=== PATIENT | male | born 2000 | race Caucasian/White ===

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

== ENCOUNTER 2019-01-13 08:52 | Emergency (ER) | payer OTHER, MEDICAID ==
[2019-01-13 09:12] VITALS: BP 143/77
--- NOTE | 2019-01-13 09:20 | ED Physician Documentation ---
PD HPI SKIN - Stated complaint Stated Complaint: R HAND RASH - Chief complaint Chief Complaint: Wound - History obtained from History obtained from: Patient, Family - History of Present Illness Pain level max: 2 Pain level now: 1 Location: Other (Dorsum of the bilateral hands) Quality / character: Itchy Associated symptoms: No: Fever Contributing factors: Unknown. No: Exposed to medication, Exposed to food, Exposed to soap / lotion, Exposed to Poison hayden/oak, Insect bite /sting, Recent illness - Additional information Additional information: 18-year-old male with bilateral hand rash for the past month. States was improving on oral steroids, but the cream that he was prescribed has not been helping. Increased itching. Does not know of any triggers. States it started after being in [place]. No fevers. No drainage. No vesicles. No blisters. Nothing makes it worse. Review of Systems Constitutional: denies: Fever, Chills GI: denies: Vomiting, Diarrhea PD PAST MEDICAL HISTORY - Past Medical History Past Medical History: Yes Respiratory: CPAP use Endocrine/Autoimmune: None Psych: Anxiety Derm: Eczema - Past Surgical History Past Surgical History: Yes HEENT: Tonsil/Adenoidectomy - Present Medications Home Medications: Ambulatory Orders Medication Instructions Recorded Confirmed Cetirizine [ZyrTEC] 15 mg PO DAILY 10/28/13 12/29/16 Cholecalciferol (Vitamin D3) 2,000 unit PO DAILY 10/28/13 12/29/16 [Vitamin D] Emollient Cream [Eucerin] 0 gm TOP BID PRN 10/28/13 12/29/16 Guanfacine HCl [Intuniv] 1 mg PO BID 10/28/13 12/29/16 Montelukast Sodium [Singulair] 5 mg PO DAILY 10/28/13 09/08/15 Mupirocin 2% Oint [Bactroban] 0 gm TOP BID PRN 10/28/13 12/29/16 Sertraline [Zoloft] 75 mg PO DAILY 10/28/13 12/29/16 Sumatriptan Succinate [Imitrex] 50 mg PO DAILY 10/28/13 12/29/16 Triamcinolone 0.1% Cream [Kenalog] 0 gm TOP BID PRN 10/28/13 12/29/16 Acetaminophen [Tylenol] 650 mg PO Q6H PRN 12/29/16 12/29/16 Inulin [Fiber Gummies] 2 gm PO DAILY 12/29/16 12/29/16 Modafinil 200 mg PO DAILY 12/29/16 12/29/16 [place]-3S/Dha/Epa/Fish Oil [Fish 1 each PO DAILY 12/29/16 12/29/16 Oil 1,200 mg Softgel] Pediatric Multivit Comb No.101 1 each PO DAILY 12/29/16 12/29/16 [Gummy] HYDROcod/ACETAM 5/325 [[place] 5/325] 1 each PO Q6H PRN #7 tablet 07/31/18 Mupirocin Calcium [Bactroban] 1 gm TP BID #15 cream..g. 11/13/18 Sulfamethoxazole/Trimethoprim 1 each PO BID #14 tablet 11/13/18 [Sulfamethoxazole-Tmp Ds Tablet] Betamethasone Valerate 1 applic TOP BID #30 cream..g. 12/09/18 Dexamethasone [Decadron] 4 mg PO DAILY #5 tablet 12/09/18 predniSONE [Deltasone] 10 mg PO [id number] #42 tab 01/13/19 - Allergies Allergies/Adverse Reactions: Allergies Allergy/AdvReac Type Severity Reaction Status Date / Time amphetamine aspartate * Allergy Itching Verified 01/13/19 09:12 [From Adderall] amphetamine sulfate * Allergy Itching Verified 01/13/19 09:12 [From Adderall] dextroamphetamine saccharate Allergy Itching Verified 01/13/19 09:12 * [From Adderall] dextroamphetamine sulfate * Allergy Itching Verified 01/13/19 09:12 [From Adderall] neomycin [Neomycin] Allergy Unknown Verified 01/13/19 09:12 - Social History Does the pt smoke?: No Smoking Status: Never smoker Does the pt drink ETOH?: No Does the pt have substance abuse?: No - Immunizations Immunizations are current?: Yes - POLST Patient has POLST: Yes PD ED PE NORMAL - Vitals Vital signs reviewed: Yes - General General: Alert and oriented X 3, No acute distress, Well developed/nourished - Derm Derm: Warm and dry - Extremities Extremities: Other (Mild papular exanthem over the dorsum of the bilateral hands. Neurovascularly intact. Full range of motion. No tenderness to palpation. No vesicles. No blisters. No secondary infection) - Neuro Neuro: Alert and oriented X 3 - Psych Psych: Normal mood, Normal affect Results - Vitals Vitals: Vital Signs - 24 hr 01/13/19 09:10 Temperature 36.6 C Heart Rate 81 Respiratory 14 Rate Blood Pressure 143/77 H O2 Saturation 95 Oxygen O2 Source Room air PD MEDICAL DECISION MAKING - ED course Complexity details: reviewed old records, considered differential, d/w patient, d/w family ED course: 18-year-old male with what appears to be dermatitis of the dorsum of the bi lateral hands. Will trial on oral steroids and follow-up with his doctor. Patient counseled regarding signs and symptoms for which I believe and urgent re-evaluation would be necessary. Patient with good understanding of and agreement to plan and is comfortable going home at this time This document was made in part using voice recognition software. While efforts are made to proofread this document, sound alike and grammatical errors may occur. Departure - Departure Disposition: 01 Home, Self Care Clinical Impression: Hand dermatitis Condition: Good Instructions: ED Dermatitis Non Specific Rash Follow-Up: [facility] [Provider Group] DARSHAN JASSO [Primary Care Provider] - Within 1 week Prescriptions: predniSONE [Deltasone] 10 mg PO [id number] #42 tab Comments: We will stop the cream at this time and trial you on oral steroids instead. Return if you worsen. Follow-up with your doctor for further care. If you are still not improving, you should follow-up with dermatology.
== END 2019-01-13 09:23 | disposition home or self-care (01) ==
LOC: ED 08:52
DX: L30.9 Dermatitis, unspecified (principal)
CPT/HCPCS: 99283

== ENCOUNTER 2021-06-27 08:46 | Outpatient (CLI) | payer MEDICAID ==
[2021-06-27 10:00] VITALS: BP 117/74
--- NOTE | 2021-06-27 10:00 | SLEEP CARE CONSULTATION ---
Information from patient questionnaire entered by Dayna Shannon. I have reviewed and concur with the information entered by Dayna Shannon. This document represents the service I personally performed and the decisions made by me, Rossana Parsons ARNP. History of Present Illness Service Date and Time: 06/27/2021 0846 Reason for Visit: New patient, Previously diagnosed sleep apnea, sleep apnea on CPAP therapy Chief Complaint: reports: Unrefreshed sleep, Snoring, Excessive daytime sleepiness Date of Onset: Lifetime Usual bedtime: 9784-3326 Time it takes to fall asleep: 10 minutes Snores at night: Yes Observed to quit breathing while asleep: Yes Sleeps alone due to snoring: No Number of times waking at night: 1 Reasons for waking at night: reports: Bathroom Toss, Turn, or Twitch while sleeping: Yes Recalls having dreams: Yes Usually gets out of bed at: 3504-1364 Feels refreshed in the morning: Yes (sometimes) Morning headache: Yes (has hx of migraines) Sleepy or fatigued during the day: No Ever fallen asleep while driving: No Takes day naps: Yes (2 times week for about 2 hours) Dreams during day naps: Yes Prior sleep studies: Yes Year and Where: 2013 [facility] Type of Sleep Study: Polysomnography Additional HPI information: SENA CARUSO was previously diagnosed to have mild to moderate, AHI 10.2 in 2017 and 4.8 in 2019, obstructive sleep apnea-hypopnea syndrome [facility]. - Parasomnia Symptoms Ever been unable to move upon waking from sleep: No Walks in sleep: No Talks in sleep: No Ever acted out dreams in sleep: Yes Ever felt weak in the knees when startled or emotional: No Bothered by creepy, crawly, restless sensations in legs: Yes Problems with memory or concentration: Yes CPAP Compliance Data - Data Reviewed with Patient Average duration of nightly device use: 5 hours 27 minutes Compliance rate %: 33 Current pressure setting (cmH2O): 4-14 Average residual AHI: 0.6 Central apnea: 0.3 Obstructive apnea: 0.2 Compliance data discussion: He is using a full face mask. He gets his supplies from [facility]. He last changed his mask about 2-3 months. He does have a back up mask. Subjective Patient concerns: reports: dry mouth, nose, throat. denies: aerophagia, mask discomfort, air blowing in eyes, mask leak noise, condensation in mask/hose, nasal congestion, epistaxis, other Observed to snore while using device: No Current pressure setting perceived as: comfortable On therapy, patient: reports: sleeping better, awakening more refreshed, being more awake and alert during the day, more rested overall. denies: drowsiness while driving Initial [place] Sleepiness Scale score: 10 (in 2020) Past Medical History Past Medical History: reports: Anxiety, Attention deficit, Other (Migraines, chiari malfomation, eczema, acne, sensitive skin, autism, sleep apnea) Social History The patient's occupation is a [employer]. Patient is Single and lives in [place]. Have you smoked in the past 12 months: No Alcohol use: No Caffeine use: No Family History Family history of sleep disordered breathing: Yes Family Hx Sleep Apnea: Father: Snoring, Sleep apnea - Treated Allergies and Home Medications Drug allergies reviewed: Yes (neomycin, adderall) Home medication list reviewed: Yes Allergy and home medication list: Guanfacine Topiramate Setraline Sumatriptan Doxycycline Montelukast Omeprazole Vit D3 Propanolol HCI Cholestyramine Review of Systems Weight loss over past 5 years: 10 Neurological: reports: headaches Psychiatric: reports: Attention Deficit Hyperactivity, anxiety Ear/Nose/Throat: reports: nose bleeds, tonsillectomy, wisdom teeth removed Immunologic: reports: rash, itching Physical Exam Blood Pressure: 117/74 Cuff size: wrist Heart Rate: 66 O2 Saturation: 99 Height: 6 ft 3 in Weight: 241 lb Body Mass Index: 30.1 BMI Classification: Obese Heart: regular rate and rhythm Lungs: clear bilaterally Impression and Plan 1. Obstructive Sleep Apnea-Hypopnea Syndrome, mild to moderate, with poor treatment compliance and excellent apnea control. Patient is accompanied by his sister today. Patient has history of autism, ADHD, Chiari I malformation, and developmental delays. On CPAP therapy, the patient has better sleep quality and is more rested overall. He has been being treated for most of his childhood with CPAP and Modafinil but he no longer takes Modafinil. His last sleep study was obtained in 2019 with an average AHI 4.8 and recommendation to continue CPAP was made. Patient states he will fall asleep without the mask on. He states he will lay down in bed and either think or look at his tablet and then fall asleep pretty quickly. I discussed with him having him put his mask on and turn the pressure on when he lays down. He can still look at his tablet and think until he falls asleep. This will help to increase his compliance numbers and reduce his sleepiness.Patient voiced understanding and agreement with this plan. Patient's apnea severity and rationale for treatment to reduce apnea, improve sleep quality and reduce cardiovascular and cerebrovascular events was reviewed. * Continue auto CPAP pressure at 4-14 cmH2O * Notify me if snoring with mask or feeling that the pressure is too much or too little * Attempt to lose weight * Call this office if any problems using CPAP * Return for follow up in 1-2 months, or sooner if concerns arise Counseling Topics: Spare mask, Weight loss health impact Visit Type: In Office Time Spent with Patient (minutes): 42 Provider Statement: I spent 100% of the Face to Face Visit with the patient with greater than 50% spent counseling the patient and coordination of care.
== END 2021-06-27 08:47 | disposition home or self-care (01) ==
LOC: SC 08:46
PROVIDERS: ATTEND Nurse Practitioner Family
DX: G47.33 Obstructive sleep apnea (adult) (pediatric) (principal); E66.9 Obesity, unspecified; Z68.30 Body mass index [BMI] 30.0-30.9, adult
CPT/HCPCS: 99203; 99212

== ENCOUNTER 2021-08-01 09:00 | Outpatient (CLI) | payer MEDICAID ==
--- NOTE | 2021-08-01 09:50 | SLEEP CARE CONSULTATION ---
Information from patient questionnaire entered by Dewayne Bowser MA. I have reviewed and concur with the information entered by Dewayne Bowser MA. This document represents the service I personally performed and the decisions made by , Rossana Parsons ARNP. History of Present Illness Service Date and Time: 08/01/2021 0900 Previous diagnosis: Mild AHI: 10.2 (2017 (4.8 in 2019)) Reason for follow up: one month Equipment type: [facility] Mask style: Full face Backup mask available: Yes (other mask) Last cushion change: over a month Year and Where: [facility] Type of Sleep Study: Polysomnography HPI additional information: SENA CARUSO was diagnosed to have mild, AHI 10.2, obstructive sleep apnea- hypopnea syndrome and returned today with mother for CPAP therapy one month follow-up. CPAP Compliance Data - Data Reviewed with Patient Average duration of nightly device use: 6 hours 10 minutes Compliance rate %: 70 Current pressure setting (cmH2O): 4-14 Average residual AHI: 0.8 Central apnea: 0.5 Obstructive apnea: 0.1 Subjective Patient concerns: reports: dry mouth, nose, throat (some, "not that much"). denies: aerophagia, mask discomfort, air blowing in eyes, mask leak noise, condensation in mask/hose, nasal congestion, epistaxis, other Observed to snore while using device: No Current pressure setting perceived as: comfortable On therapy, patient: reports: sleeping better, awakening more refreshed, being more awake and alert during the day, more rested overall. denies: drowsiness while driving Initial [place] Sleepiness Scale score: 10 (2020) Current [place] Sleepiness Scale score: 10 (2020) Allergies and Home Medications Home medication list reviewed: Yes (no changes) Review of Systems Review of systems same as previous: Yes (no changes) Physical Exam Vital signs obtained and entered by: Julia AGUILAR Blood Pressure: 112/66 (left) Cuff size: wrist Heart Rate: 64 O2 Saturation: 98 (with mask) Height: 6 ft 3 in Weight: 238 lb (without boots) Body Mass Index: 29.7 BMI Classification: Overweight Impression and Plan 1. Obstructive Sleep Apnea-Hypopnea Syndrome, mild, with good treatment compliance and excellent apnea control. On CPAP therapy, the patient has better sleep quality and is more rested overall. He has brought his compliance up nicely. He is very satisfied with current CPAP therapy and has no complaints except occasional dry mouth. Oral dryness can be reduced by adjusting humidity setting higher or heated hose lower or by adjusting both settings. Patient advised that chronic oral dryness can affect dental health. He voiced understanding. Patient's CPAP was last updated in 2013. The patients CPAP is over 5 years old and of reasonable use. Thus, the CPAP will be updated. The new CPAPs also have a better humidity system which could assist control of patients dryness symptoms. A DWO prescription will be made. Compliance guidelines for new device and follow up discussed. Patient's apnea severity and rationale for treatment to reduce apnea, improve sleep quality and reduce cardiovascular and cerebrovascular events was reviewed. I also reviewed the benefit of consistent device use of CPAP for anxiety and ADD. * Continue auto CPAP pressure at 4-14 cmH2O * Update device * Update supplies as needed * Notify me if snoring with mask or feeling that the pressure is too much or too little * Attempt to lose weight * Call this office if any problems using CPAP * Return for follow up one month after obtaining new device, or sooner if concerns arise Counseling Topics: Spare mask, Weight loss health impact Visit Type: In Office Other Participants: Other (Mother) Time Spent with Patient (minutes): 20 Provider Statement: I spent 100% of the Face to Face Visit with the patient with greater than 50% spent counseling the patient and coordination of care.
[2021-08-01 09:51] VITALS: BP 112/66
== END 2021-08-01 09:01 | disposition home or self-care (01) ==
LOC: SC 09:00
PROVIDERS: ATTEND Nurse Practitioner Family
DX: G47.33 Obstructive sleep apnea (adult) (pediatric) (principal)
CPT/HCPCS: 99212; 99213

== ENCOUNTER 2022-12-13 13:39 | Outpatient (CLI) | payer MEDICAID ==
--- NOTE | 2022-12-13 15:05 | Ultrasound Report ---
PROCEDURE: Retroperitoneal INDICATIONS: HYPEROZALURIA TECHNIQUE: Real-time scanning was performed of the retroperitoneal organs, with image documentation. COMPARISON: None. FINDINGS: Kidneys: Kidneys are normal in size. Right kidney measures 14 cm long; left kidney measures 12 cm l mary anne. Right renal cortical thickness is 2 cm; left renal cortical thickness is 1.9 cm. No solid mass es or hydronephrosis. Left stone measuring 5 mm. Right stone measuring 9 mm. Left renal cyst measurin g 2.5 cm. Right renal cyst measuring 2.2 cm. Pancreas: Visualized portions of the pancreas are sonographically normal. Aorta: Visualized aorta is normal in caliber at 3 cm or less. Iliac arteries: Proximal common iliac arteries are normal in caliber at 2.5 cm or less. IVC: Intrahepatic inferior vena cava is patent. Bladder: Pre-void bladder volume is 140 mL. Post-void residual is 14 mL. Pre-void images demonstra te no intraluminal masses or stones. On pre-void images, bilateral ureteral jets are noted with colo r Doppler interrogation. (Of note, ureteral jets may not be detectable in up to 25% of cases due to insufficient differences in specific gravity between ureteral and bladder urine). Miscellaneous: Prostate measures 3.8 x 2.2 x 4.5 cm.. IMPRESSION: Bilateral nephrolithiasis without evidence of obstruction. Reviewed by: Oren Arthur MD on 12/13/2022 2:04 PM DAVID Approved by: Oren Arthur MD on 12/13/2022 2:04 PM AKMAXIMILIAN Station ID: [id number]
== END 2022-12-13 13:40 | disposition home or self-care (01) ==
LOC: DI 13:39
PROVIDERS: ATTEND Urology
DX: N20.0 Calculus of kidney (principal)

== ENCOUNTER 2023-05-29 07:24 | Outpatient (CLI) | payer MEDICAID ==
--- NOTE | 2023-05-29 18:21 | Ultrasound Report ---
PROCEDURE: Retroperitoneal INDICATIONS: HYPEROXALURIA TECHNIQUE: Real-time scanning was performed of the retroperitoneal organs, with image documentation. COMPARISON: 12/13/2021 FINDINGS: Kidneys: Kidneys are normal in size. Right kidney measures 13.6 cm long; left kidney measures 12 cm long. Right renal cortical thickness is 1.6 cm; left renal cortical thickness is 1 cm. No solid ma sses or hydronephrosis. Within the right lateral inferior kidney, there is a 1 cm stone. Within the superior left kidney, there is an 8 mm stone. Bilateral simple appearing renal cysts can again be seen. Bladder: Pre-void bladder volume is 296 mL. Post-void residual is 3 mL. Pre-void images demonstrat e no intraluminal masses or stones. On pre-void images, both ureteral jets are noted with color Dopp ler interrogation. (Of note, ureteral jets may not be detectable in up to 25% of cases due to insuff icient differences in specific gravity between ureteral and bladder urine). Miscellaneous: No free abdominal fluid. The prostate measures 3.5 x 2.7 x 5.2 cm. IMPRESSION: Negative for hydronephrosis. Nonobstructive bilateral renal stones are again seen. Simple appearing bilateral renal cysts again seen. Trivial postvoid residual, 3 cc. Reviewed by: Morris Hussein MD on 05/29/2023 5:20 PM DAVID Approved by: Morris Hussein MD on 05/29/2023 5:20 PM DAVID Station ID: [id number]
== END 2023-05-29 07:25 | disposition home or self-care (01) ==
LOC: DI 07:24
PROVIDERS: ATTEND Urology
DX: R82.992 Hyperoxaluria (principal); R82.993 Hyperuricosuria; Z87.442 Personal history of urinary calculi; N20.0 Calculus of kidney; N28.1 Cyst of kidney, acquired

== ENCOUNTER 2024-01-14 09:59 | Outpatient (CLI) | payer MEDICAID ==
--- NOTE | 2024-01-14 10:23 | Sleep Patient Instructions ---
Sleep Center Visit Summary - Patient Visit Information Reason for Visit: 3 month followup - Patient Instructions Additional Instructions: You were here for follow up of CPAP therapy. You will be continued on CPAP therapy with pressure at 4-14 cmH2O. You should follow up with sleep care in 3 months. You may contact us sooner for any questions or concerns. - Clinic Information Contact: [facility] [address] [place] [id number] [email or web address] T: [phone]
[2024-01-14 10:27] VITALS: BP 121/69; O2SAT 97
--- NOTE | 2024-01-14 10:27 | SLEEP CARE CONSULTATION ---
Information from patient questionnaire entered by Katherine Herrera. I have reviewed and concur with the information entered by Katherine Herrera. This document represents the service I personally performed and the decisions made by , Rossana Parsons ARNP. History of Present Illness Service Date and Time: 01/14/2024 0959 Previous diagnosis: Mild AHI: 10.2 (2016 (4.8 in 2019)) Reason for follow up: three month (F/U) Accompanied by: Melissa Equipment type: CPAP (Airsense 10, s/u 05/2014) Equipment obtained from: [email or web address] Mask style: Full face Backup mask available: No Last cushion change: 2 weeks ago Prior sleep studies: Yes Year and Where: [facility] Type of Sleep Study: Polysomnography HPI additional information: SENA CARUSO was diagnosed to have mild, AHI 10.2, obstructive sleep apnea- hypopnea syndrome and returned today with mother who is guardian for CPAP therapy three month follow-up. Sleep Study - Results Type of Sleep Study: Polysomnography Prior sleep studies: Yes Year and Where: [facility] CPAP Compliance Data - Data Reviewed with Patient Average duration of nightly device use: 4 hours 49 minutes Compliance rate %: 46 (67/90 days used) Current pressure setting (cmH2O): 4-14 (median 5.2, avg 7.7, max 8.9) Average residual AHI: 0.2 Central apnea: 0.1 Obstructive apnea: 0 Average large leak: 2.6 Subjective Missed days of use due to: reports: other (forgetting to put mask on) Patient concerns: denies: aerophagia, mask discomfort, air blowing in eyes, mask leak noise, condensation in mask/hose, nasal congestion, dry mouth, nose, throat, epistaxis Observed to snore while using device: No Current pressure setting perceived as: comfortable On therapy, patient: reports: sleeping better, awakening more refreshed, being more awake and alert during the day, more rested overall. denies: drowsiness while driving (he does not drive) Initial [place] Sleepiness Scale score: 10 (2020) Current [place] Sleepiness Scale score: 13 Allergies and Home Medications Known drug allergies: Yes (as listed) Drug allergies reviewed: Yes Home medication list reviewed: Yes (no changes) Allergy and home medication list: Allergies amphetamine aspartate * [From Adderall] Allergy (Verified 01/12/24 14:44) Itching amphetamine sulfate * [From Adderall] Allergy (Verified 01/12/24 14:44) Itching dextroamphetamine saccharate * [From Adderall] Allergy (Verified 01/12/24 14:44) Itching dextroamphetamine sulfate * [From Adderall] Allergy (Verified 01/12/24 14:44) Itching neomycin [Neomycin] Allergy (Verified 01/12/24 14:44) Unknown Review of Systems Review of systems same as previous: Yes (no changes) Physical Exam Vital signs obtained and entered by: ROSSANA Zapata MA Blood Pressure: 121/69 Heart Rate: 68 O2 Saturation: 97 Height: 6 ft 3 in Weight: 294 lb 3.2 oz Weight change since last visit: 6 lb gain Body Mass Index: 36.8 BMI Classification: Obese Impression and Plan 1. Obstructive Sleep Apnea-Hypopnea Syndrome, mild, with fair treatment compliance and good apnea control. On CPAP therapy, the patient has better sleep quality and is more rested overall. He has significant improvement of his sleep apnea when he uses his CPAP. He has successfully been able to get his mask on over 70% of the time but will not always make 4 hours. He has increased his compliance by 30% in the last 3 months. He has no complaints or issues with using the CPAP. We will follow-up with him again in 3 months for further support. Patient's apnea severity and rationale for treatment to reduce apnea, improve sleep quality and reduce cardiovascular and cerebrovascular events was reviewed. I also reviewed the benefit of consistent device use of CPAP for anxiety, attention deficit. 2. Obesity, unspecified. Currently patients BMI is 36.8. Obesity increases the risk of apnea, CPAP pressure requirements and overall health risks especially cardiovascular and diabetes. Thus patient is advised to lose weight. * Continue auto CPAP pressure at 4-14 cmH2O * Notify me if snoring with mask or feeling that the pressure is too much or too little * Attempt to lose weight * Call this office if any problems using CPAP * Return for follow up in 3 months, or sooner if concerns arise Counseling Topics: Spare mask, Weight loss health impact Visit Type: In Office Time Spent with Patient (minutes): 20 Provider Statement: I spent 100% of the Face to Face Visit with the patient with greater than 50% spent counseling the patient and coordination of care.
== END 2024-01-14 10:00 | disposition home or self-care (01) ==
LOC: SC 09:59
PROVIDERS: ATTEND Nurse Practitioner Family
DX: G47.33 Obstructive sleep apnea (adult) (pediatric) (principal); E66.9 Obesity, unspecified; Z68.36 Body mass index [BMI] 36.0-36.9, adult
CPT/HCPCS: 99212; 99213

== ENCOUNTER 2024-04-18 09:52 | Outpatient (CLI) | payer MEDICAID ==
--- NOTE | 2024-04-18 10:49 | Sleep Patient Instructions ---
Sleep Center Visit Summary - Patient Visit Information Reason for Visit: 3 month followup - Patient Instructions Additional Instructions: You were here for follow up of CPAP therapy. You will be continued on CPAP therapy with pressure at 4-14 cmH2O. You should follow up with sleep care in 3 months. You may contact us sooner for any questions or concerns. - Clinic Information Contact: [facility] [address] [place] [id number] [email or web address] T: [phone]
--- NOTE | 2024-04-18 10:54 | SLEEP CARE CONSULTATION ---
Information from patient questionnaire entered by Yeimi Herrera. I have reviewed and concur with the information entered by Yeimi Herrera. This document represents the service I personally performed and the decisions made by me, Rossana Parsons ARNP. History of Present Illness Service Date and Time: 04/18/2024 0952 Previous diagnosis: Mild, Obstructive Sleep Apnea-Hypopnea Syndrome AHI: 10.2 (2017) (4.8 in 2018)) Reason for follow up: three month (F/U) Accompanied by: Father Equipment type: CPAP (RESMED Airsense 10, s/u 05/2014, MACHINE NEEDED) Equipment obtained from: [employer] (has supplies but needs tubing; reusing supplies because not able to get supplies due to compliance) Mask style: Full face Backup mask available: Yes Last cushion change: 3 weeks Prior sleep studies: Yes Year and Where: [facility] Type of Sleep Study: Polysomnography HPI additional information: SENA CARUSO was diagnosed to have mild, AHI 10.2, obstructive sleep apnea- hypopnea syndrome and returned today with father for CPAP therapy three month follow-up. Sleep Study - Results Type of Sleep Study: Polysomnography Prior sleep studies: Yes Year and Where: [facility] CPAP Compliance Data - Data Reviewed with Patient Average duration of nightly device use: 4 HRS 32 MINS Compliance rate %: 23 (01/19/24-04/17/24; 46/90 days used) Current pressure setting (cmH2O): 4-14 Average residual AHI: 0.2 Central apnea: 0 Obstructive apnea: 0.1 Hypopnea: 0.1 Average large leak: 3.8 L/min Subjective Missed days of use due to: reports: travel, other (forgot to put on) Patient concerns: denies: aerophagia, mask discomfort, air blowing in eyes, mask leak noise, condensation in mask/hose, nasal congestion, dry mouth, nose, throat, epistaxis Observed to snore while using device: No Current pressure setting perceived as: comfortable On therapy, patient: reports: sleeping better, awakening more refreshed, being more awake and alert during the day, more rested overall. denies: drowsiness while driving (does not drive) Initial [place] Sleepiness Scale score: 10 (2020) Current [place] Sleepiness Scale score: 14 (04/18/24) Allergies and Home Medications Known drug allergies: Yes (as listed) Drug allergies reviewed: Yes Home medication list reviewed: Yes (no changes) Allergy and home medication list: Allergies amphetamine aspartate * [From Adderall] Allergy (Verified 04/14/24 13:49) Itching amphetamine sulfate * [From Adderall] Allergy (Verified 04/14/24 13:49) Itching dextroamphetamine saccharate * [From Adderall] Allergy (Verified 04/14/24 13:49) Itching dextroamphetamine sulfate * [From Adderall] Allergy (Verified 04/14/24 13:49) Itching neomycin [Neomycin] Allergy (Verified 04/14/24 13:49) Unknown Review of Systems Review of systems same as previous: Yes (NO CHANGE) Physical Exam Vital signs obtained and entered by: YEIMI Zapata MA Blood Pressure: 138/72 (LEFT ARM) Cuff size: long Heart Rate: 74 O2 Saturation: 97 Height: 6 ft 3 in Weight: 292 lb 6.4 oz Weight change since last visit: 2 lb loss Body Mass Index: 36.5 BMI Classification: Obese Impression and Plan 1. Obstructive Sleep Apnea-Hypopnea Syndrome, mild, with fair treatment compliance and good apnea control. On CPAP therapy, the patient has better sleep quality and is more rested overall. Patient is accompanied by his father who says that they had have been going on some long bike rides. It has been improving his health and he has lost a couple of pounds of weight. Unfortunately when on the bike rides he had to where he could plug-in his machine and he has not been able to use it as much as needed to bring up his compliance. He continues to want to increase his compliance so that he can update his machine. Will have him follow-up again in 3 months to see if he can bring his compliance up. Patient's apnea severity and rationale for treatment to reduce apnea, improve sleep quality and reduce cardiovascular and cerebrovascular events was reviewed. I also reviewed the benefit of consistent device use of CPAP for anxiety and attention deficit. 2. Obesity, unspecified. Currently patients BMI is 36.5. Obesity increases the risk of apnea, CPAP pressure requirements and overall health risks especially cardiovascular and diabetes. Thus patient is advised to lose weight. * Continue auto CPAP pressure at 4-14 cmH2O * Notify me if snoring with mask or feeling that the pressure is too much or too little * Attempt to lose weight * Call this office if any problems using CPAP * Return for follow up in 3 months, or sooner if concerns arise Counseling Topics: Spare mask, Weight loss health impact Follow up with Sleep Care in: 3 months Visit Type: In Office Time Spent with Patient (minutes): 18 Provider Statement: I spent 100% of the Face to Face Visit with the patient with greater than 50% spent counseling the patient and coordination of care.
[2024-04-18 11:04] VITALS: BP 138/72; O2SAT 97
== END 2024-04-18 09:53 | disposition home or self-care (01) ==
LOC: SC 09:52
PROVIDERS: ATTEND Nurse Practitioner Family
DX: G47.33 Obstructive sleep apnea (adult) (pediatric) (principal); E66.9 Obesity, unspecified; Z68.36 Body mass index [BMI] 36.0-36.9, adult
CPT/HCPCS: 99212